=== PATIENT | male | born 1960 | race Caucasian/White ===

== ENCOUNTER 2018-09-27 09:24 | Emergency (ER) | payer OTHER ==
--- NOTE | 2018-09-27 09:46 | ED ---
Laceration/Wound HPI - HPI Summary HPI Summary: Patient is a 58-year-old male presenting to the ED with a right sided temporal head laceration measuring approximately 0.4 cm in length. He states he was working under a sink when he sat up too fast, hitting his head on the side of a door. Denies LOC. Denies any blood thinners. Patient is otherwise healthy. He denies any headache, visual changes, confusion. He states he is at his baseline. - History of Current Complaint Stated Complaint: HEAD LAC PER EMS Time Seen by Provider: 09/27/18 09:29 Hx Obtained From: Patient Mechanism of Injury: Sharp/Blunt Trauma Onset/Duration: Sudden Onset Aggravating: Movement Alleviating: Compression Timing: Constant Onset Severity: Mild Current Severity: Mild Pain Intensity: 1 Pain Scale Used: 0-10 Numeric - Allergy/Home Medications Allergies/Adverse Reactions: Allergies Allergy/AdvReac Type Severity Reaction Status Date / Time No Known Allergies Allergy Verified 09/27/18 09:31 PMH/Surg Hx/FS Hx/Imm Hx Previously Healthy: Yes - Immunization History Hx Pertussis Vaccination: No Immunizations Up to Date: Yes Infectious Disease History: No Infectious Disease History: Denies: Traveled Outside the [place] in Last 30 Days - Social History Occupation: Employed Full-time Lives: With Family Alcohol Use: None Hx Substance Use: No Substance Use Type: Reports: None Hx Tobacco Use: No Review of Systems Constitutional: Negative Negative: Fever, Chills, Fatigue, Skin Diaphoresis Negative: Palpitations, Chest Pain Negative: Shortness Of Breath, Cough Genitourinary: Negative Positive: no symptoms reported, see HPI Negative: Arthralgia, Myalgia Positive: Other - .4cm laceration R temporal area Negative: Headache Psychological: Normal All Other Systems Reviewed And Are Negative: Yes Physical Exam Triage Information Reviewed: Yes Vital Signs On Initial Exam: Initial Vitals Temp Pulse Resp BP Pulse Ox 98.6 F 74 16 180/97 98 09/27/18 09:28 09/27/18 09:28 09/27/18 09:28 09/27/18 09:28 09/27/18 09:28 Vital Signs Reviewed: Yes Appearance: Positive: Well-Appearing, Well-Nourished Skin: Positive: Warm, Skin Color Reflects Adequate Perfusion Head/Face: Positive: Normal Head/Face Inspection Eyes: Positive: EOMI, Conjunctiva Clear Neck: Positive: Supple, No Lymphadenopathy Respiratory/Lung Sounds: Positive: Clear to Auscultation, Breath Sounds Present Cardiovascular: Positive: RRR, Pulses are Symmetrical in both Upper and Lower Extremities Musculoskeletal: Positive: Strength/ROM Intact Diagnostics - Vital Signs Vital Signs Temp Pulse Resp BP Pulse Ox 09/27/18 09:28 98.6 F 74 16 180/97 98 - Laboratory Lab Statement: Any lab studies that have been ordered have been reviewed, and results considered in the medical decision making process. Laceration Repair Course/Dx - Course Course Of Treatment: Patient is evaluated for head laceration to the right temporal side. The laceration is approximately 0.4 cm in length, and well appropriate. Bleeding is well controlled on arrival. Adhesive glue applied to area. Patient feels well. Lungs CTA, RRR. - Clinical Impression Provider Diagnoses: Laceration Discharge - Sign-Out/Discharge Documenting (check all that apply): Patient Departure Patient Received Moderate/Deep Sedation with Procedure: No - Discharge Plan Condition: Good Disposition: HOME Patient Education Materials: Skin Adhesive Care (ED) Referrals: Tatiana Morales [Primary Care Provider] - Additional Instructions: You are able to wash the face, but do not scrub the area of the glue until tomorrow - Billing Disposition and Condition Condition: GOOD Disposition: Home
[2018-09-27 10:38] VITALS: BP 141/85
== END 2018-09-27 10:35 | disposition home or self-care (01) ==
LOC: ED 09:24
DX: S01.91XA Laceration without foreign body of unspecified part of head, initial encounter (principal); W22.09XA Striking against other stationary object, initial encounter; Y93.E9 Activity, other interior property and clothing maintenance; Y92.009 Unspecified place in unspecified non-institutional (private) residence as the place of occurrence of the external cause
CPT/HCPCS: 99281